=== PATIENT | male | born 1955 | race Caucasian/White ===

== ENCOUNTER 2019-07-11 16:51 | Inpatient (IN) | payer MEDICARE, MEDICAID ==
[~2019-07-11] VITALS: Ht 182.9 cm; Wt 86.6 kg
[~2019-07-11 16:51] MED LIST: IBUP-2071 PO; LISI-662 PO; LORA-1000 PO; PANT40TA25 PO; PARO20TA24 PO; TEMA15CA PO; TRAZ-257 PO
[2019-07-11] MEDS ORDERED: SERT100T12 PO (16:59)
[2019-07-11] MEDS ORDERED: HYDR25TA84 PO (16:59)
[2019-07-11] MEDS ORDERED: QUET300T2 PO (16:59)
[2019-07-11] MEDS ORDERED: HALOPERIDOL 5 MG TABLET PO PRN (17:15)
[2019-07-11] MEDS ORDERED: ZOLPIDEM TARTRATE 10 MG TABLET PO PRN (17:15)
[2019-07-11] MEDS ORDERED: INFLUENZA VIRUS VACCINE QVS 2019-20 (3YR+)/PF 60 MCG/0.5 ML SYRINGE IM ONE (18:15)
[2019-07-11 21:28] VITALS: BP 99/66
[2019-07-11] MEDS: TraZODone HCL 150 MG TABLET PO SCH (21:31)
[2019-07-12 05:01] VITALS: BP 137/74
[2019-07-12] MEDS ORDERED: OMEPRAZOLE 20 MG CAPSULE PO PRN (05:45)
[2019-07-12] MEDS ORDERED: ACETAMINOPHEN 325 MG TABLET PO PRN (05:45)
[2019-07-12] MEDS ORDERED: BENZOCAINE/MENTHOL LOZENGE MM PRN (05:45)
[2019-07-12] MEDS ORDERED: IBUPROFEN 600 MG TABLET PO PRN (05:45)
[2019-07-12] MEDS ORDERED: ALBUTEROL SULFATE HFA 90 MCG/PUFF 8 GM INHALER IH PRN (05:45)
[2019-07-12] MEDS ORDERED: ONDANSETRON HCL 4 MG TABLET PO PRN (05:45)
[2019-07-12] MEDS ORDERED: MAG HYDROX/AL HYDROX/SIMETH ES 30 ML SUSPENSION UDCUP PO PRN (05:45)
[2019-07-12] MEDS ORDERED: MAGNESIUM HYDROXIDE SUSPENSION 30 ML UDCUP PO PRN (05:45)
[2019-07-12] MEDS ORDERED: PETROLATUM,WHITE 28 GM JELLY TP PRN (05:45)
[2019-07-12] MEDS ORDERED: LOPERAMIDE HCL 2 MG CAPSULE PO PRN (05:45)
[2019-07-12] MEDS ORDERED: BACITRACIN 28.4 GM OINTMENT TP PRN (05:45)
[2019-07-12] MEDS ORDERED: CloNIDine HCL 0.1 MG TABLET PO PRN (05:45)
[2019-07-12] MEDS ORDERED: DOCUSATE SODIUM 100 MG CAPSULE PO PRN (05:45)
[2019-07-12 06:26] VITALS: BP 128/76
[2019-07-12] MEDS: LORazepam 2 MG TABLET PO PRN (06:28)
[2019-07-12 08:23] VITALS: BP 118/78
[2019-07-12] MEDS: QUEtiapine FUMARATE 200 MG TABLET PO SCH ×2 (08:40→16:56)
[2019-07-12] MEDS: SERTRALINE HCL 100 MG TABLET PO SCH (08:40)
[2019-07-12] MEDS: LISINOPRIL 20 MG TABLET PO SCH (08:41)
[2019-07-12] MEDS: DIAZEPAM 10 MG TABLET PO SCH (08:41)
[2019-07-12] MEDS: GABAPENTIN 300 MG CAPSULE PO SCH ×3 (08:41→16:56)
[2019-07-12] MEDS: NICOTINE 21 MG/24 HOUR PATCH TD SCH (08:42)
[2019-07-12] MEDS: HydrALAZINE HCL 25 MG TABLET PO SCH ×2 (08:48→16:56)
[2019-07-12 09:24] LABS: APPEARANCE,URINE CLEAR (CLEAR); BILIRUBIN,URINE NEGATIVE (NEGATIVE); GLUCOSE, URINE (UA) NEGATIVE (NEGATIVE); KETONES,URINE NEGATIVE (NEGATIVE); LEUKOCYTE ESTERASE ,URINE NEGATIVE (NEGATIVE); NITRATE,URINE NEGATIVE (NEGATIVE); OCCULT BLOOD,URINE NEGATIVE (NEGATIVE); PROTEIN,URINE NEGATIVE (NEGATIVE); UROBILINOGEN,URINE 0.2 mg/dL (<=1.0)
[2019-07-12 09:29] LABS: AMPHET/METH SCREEN,URINE NEGATIVE (NEGATIVE); BARBITURATE SCREEN, URINE NEGATIVE (NEGATIVE); BENZODIAZEPINES SCREEN,URINE POSITIVE (NEGATIVE); CANNABINOID SCREEN,URINE NEGATIVE (NEGATIVE); COCAINE SCREEN,URINE NEGATIVE (NEGATIVE); METHADONE SCREEN, URINE NEGATIVE (NEGATIVE); OPIATE SCREEN,URINE NEGATIVE (NEGATIVE); PHENCYCLIDINE SCREEN,URINE NEGATIVE (NEGATIVE)
[2019-07-12 16:11] VITALS: BP 109/67
[2019-07-12] MEDS: TraZODone HCL 150 MG TABLET PO SCH (20:45)
[2019-07-12] MEDS: DOCUSATE SODIUM 250 MG CAPSULE PO SCH (20:45)
[2019-07-13 00:14] VITALS: BP 100/60
[2019-07-13] MEDS: LORazepam 2 MG TABLET PO PRN ×2 (03:09→14:44)
[2019-07-13 03:10] VITALS: BP 107/69
[2019-07-13] MEDS: IBUPROFEN 800 MG TABLET PO PRN ×2 (03:15→14:44)
[2019-07-13 08:26] VITALS: BP 116/75
[2019-07-13] MEDS: SERTRALINE HCL 100 MG TABLET PO SCH (08:45)
[2019-07-13] MEDS: LISINOPRIL 20 MG TABLET PO SCH (08:45)
[2019-07-13] MEDS: NICOTINE 21 MG/24 HOUR PATCH TD SCH (08:45)
[2019-07-13] MEDS: GABAPENTIN 300 MG CAPSULE PO SCH ×3 (08:45→17:49)
[2019-07-13] MEDS: HydrALAZINE HCL 25 MG TABLET PO SCH ×2 (08:45→17:49)
[2019-07-13] MEDS: QUEtiapine FUMARATE 200 MG TABLET PO SCH ×2 (08:46→17:49)
[2019-07-13] MEDS: DIAZEPAM 10 MG TABLET PO SCH (08:46)
[2019-07-13 16:03] VITALS: BP 107/69
[2019-07-13 17:50] VITALS: BP 123/83
[2019-07-13] MEDS: DOCUSATE SODIUM 250 MG CAPSULE PO SCH (20:33)
[2019-07-13] MEDS: TraZODone HCL 150 MG TABLET PO SCH (20:33)
[2019-07-14] VITALS (8 sets, daily range): BP systolic 96–117; BP diastolic 64–81
[2019-07-14] MEDS: IBUPROFEN 800 MG TABLET PO PRN ×2 (01:18→14:10)
[2019-07-14] MEDS: LORazepam 2 MG TABLET PO PRN ×2 (06:09→14:10)
[2019-07-14] MEDS: NICOTINE 21 MG/24 HOUR PATCH TD SCH (08:28)
[2019-07-14] MEDS: QUEtiapine FUMARATE 200 MG TABLET PO SCH ×2 (08:29→16:17)
[2019-07-14] MEDS: DIAZEPAM 10 MG TABLET PO SCH (08:29)
[2019-07-14] MEDS: GABAPENTIN 300 MG CAPSULE PO SCH ×3 (08:29→16:18)
[2019-07-14] MEDS: HydrALAZINE HCL 25 MG TABLET PO SCH ×2 (08:29→17:00)
[2019-07-14] MEDS: LISINOPRIL 20 MG TABLET PO SCH (08:29)
[2019-07-14] MEDS: SERTRALINE HCL 100 MG TABLET PO SCH (08:29)
[2019-07-14 08:47] LABS: BASOPHILS % (AUTO) 1.1 % (0.0-2.0); EOSINOPHILS % (AUTO) 8.8 % (1.0-6.0); HEMATOCRIT 40.6 % (41-53); HEMOGLOBIN 13.7 g/dL (13.5-17.5); LYMPHOCYTES # (AUTO) 1.6 K/uL (1.0-4.8); LYMPHOCYTES % (AUTO) 31.7 % (22.0-44.0); MEAN CORPUSCULAR HEMOGLOBIN 32.1 pg (26.0-34.0); MEAN CORPUSCULAR HGB CONC 33.8 G/dL (31.0-37.0); MEAN CORPUSCULAR VOLUME 95 fL (80-100); MONOCYTES # (AUTO) 0.5 K/uL (0.1-1.0); MONOCYTES % (AUTO) 9.9 % (2.0-9.0); NEUTROPHILS # (AUTO) 2.4 K/uL (1.8-7.7); NEUTROPHILS % (AUTO) 48.5 % (40.0-70.0); PLATELET COUNT (AUTO) 202 K/uL (150-450); RED BLOOD CELL COUNT(AUTO) 4.28 MIL/uL (4.50-5.90)
[2019-07-14 09:11] LABS: HEMOGLOBIN A1C 5.2 % (4.5-6.2)
[2019-07-14 09:28] LABS: ALANINE AMINOTRANSFERASE 45 U/L (12-78); ALBUMIN 3.7 g/dL (3.4-5.0); ALKALINE PHOSPHATASE 68 U/L (46-116); ANION GAP 9 mmol/L (8-16); ASPARTATE AMINOTRANSFERASE 28 U/L (15-37); BILIRUBIN,TOTAL 0.3 mg/dL (0.1-1.0); CALCIUM, TOTAL 8.6 mg/dL (8.8-10.5); CARBON DIOXIDE 23 mmol/L (22-29); CHLORIDE 101 mmol/L (98-107); CREATININE 0.94 mg/dL (0.60-1.30); FREE T4 (FREE THYROXINE) 0.91 ng/dL (0.76-1.46); GLOMERULAR FILTR. RATE CALC > 60 mL/min (>60); GLUCOSE,RANDOM 67 mg/dL (70-110); POTASSIUM 4.3 mmol/L (3.5-5.1); SODIUM SERUM 133 mmol/L (136-145); THYROID STIMULATING HORMONE 1.71 uIU/mL (0.36-3.74); TOTAL PROTEIN, SERUM 7.1 g/dL (6.4-8.2); UREA NITROGEN, BLOOD 20 mg/dL (7-18)
[2019-07-14] MEDS: DOCUSATE SODIUM 250 MG CAPSULE PO SCH (20:28)
[2019-07-14] MEDS: TraZODone HCL 150 MG TABLET PO SCH (20:28)
[2019-07-15 01:22] VITALS: BP 100/47
[2019-07-15] MEDS: LORazepam 2 MG TABLET PO PRN ×2 (01:34→16:19)
[2019-07-15] MEDS: IBUPROFEN 800 MG TABLET PO PRN ×2 (01:34→16:19)
[2019-07-15 08:31] VITALS: BP 134/80
[2019-07-15] MEDS: LISINOPRIL 20 MG TABLET PO SCH (08:54)
[2019-07-15] MEDS: DIAZEPAM 10 MG TABLET PO SCH (08:54)
[2019-07-15] MEDS: HydrALAZINE HCL 25 MG TABLET PO SCH ×2 (08:54→16:19)
[2019-07-15] MEDS: SERTRALINE HCL 100 MG TABLET PO SCH (08:54)
[2019-07-15] MEDS: QUEtiapine FUMARATE 200 MG TABLET PO SCH ×2 (08:54→16:19)
[2019-07-15] MEDS: NICOTINE 21 MG/24 HOUR PATCH TD SCH (08:54)
[2019-07-15] MEDS: GABAPENTIN 300 MG CAPSULE PO SCH ×3 (08:54→16:19)
[2019-07-15 16:03] VITALS: BP 106/66
[2019-07-15] MEDS: TraZODone HCL 150 MG TABLET PO SCH (20:13)
[2019-07-15] MEDS: DOCUSATE SODIUM 250 MG CAPSULE PO SCH (20:13)
[2019-07-16 00:08] VITALS: BP 100/60
[2019-07-16 02:17] VITALS: BP 104/67
[2019-07-16] MEDS: LORazepam 2 MG TABLET PO PRN ×2 (02:21→14:48)
[2019-07-16] MEDS: IBUPROFEN 800 MG TABLET PO PRN ×2 (02:21→14:48)
[2019-07-16 08:07] VITALS: BP 125/81
[2019-07-16] MEDS: LISINOPRIL 20 MG TABLET PO SCH (09:01)
[2019-07-16] MEDS: GABAPENTIN 300 MG CAPSULE PO SCH ×3 (09:01→16:06)
[2019-07-16] MEDS: QUEtiapine FUMARATE 200 MG TABLET PO SCH ×2 (09:01→16:07)
[2019-07-16] MEDS: SERTRALINE HCL 100 MG TABLET PO SCH (09:01)
[2019-07-16] MEDS: HydrALAZINE HCL 25 MG TABLET PO SCH ×2 (09:01→16:06)
[2019-07-16] MEDS: DIAZEPAM 10 MG TABLET PO SCH (09:01)
[2019-07-16] MEDS: NICOTINE 21 MG/24 HOUR PATCH TD SCH (09:02)
[2019-07-16 16:07] VITALS: BP 111/72
[2019-07-16] MEDS: TraZODone HCL 150 MG TABLET PO SCH (20:34)
[2019-07-16] MEDS: DOCUSATE SODIUM 250 MG CAPSULE PO SCH (20:34)
[2019-07-17 00:05] VITALS: BP 108/75
[2019-07-17] MEDS: LORazepam 2 MG TABLET PO PRN ×2 (00:12→14:20)
[2019-07-17] MEDS: IBUPROFEN 800 MG TABLET PO PRN ×2 (00:13→14:21)
[2019-07-17 08:18] VITALS: BP 148/91
[2019-07-17] MEDS: HydrALAZINE HCL 25 MG TABLET PO SCH ×2 (08:24→16:30)
[2019-07-17] MEDS: GABAPENTIN 300 MG CAPSULE PO SCH ×3 (08:24→16:31)
[2019-07-17] MEDS: DIAZEPAM 10 MG TABLET PO SCH (08:24)
[2019-07-17] MEDS: QUEtiapine FUMARATE 200 MG TABLET PO SCH ×2 (08:24→16:31)
[2019-07-17] MEDS: SERTRALINE HCL 100 MG TABLET PO SCH (08:24)
[2019-07-17] MEDS: LISINOPRIL 20 MG TABLET PO SCH (08:25)
[2019-07-17] MEDS: NICOTINE 21 MG/24 HOUR PATCH TD SCH (08:25)
[2019-07-17 11:10] VITALS: BP 109/68
[2019-07-17 14:21] VITALS: BP 122/76
[2019-07-17 16:03] VITALS: BP 111/72
[2019-07-17] MEDS: TraZODone HCL 150 MG TABLET PO SCH (20:33)
[2019-07-17] MEDS: DOCUSATE SODIUM 250 MG CAPSULE PO SCH (20:33)
[2019-07-18 00:51] VITALS: BP 107/63
[2019-07-18 02:40] VITALS: BP 110/65
[2019-07-18] MEDS: LORazepam 2 MG TABLET PO PRN ×3 (02:45→21:22)
[2019-07-18] MEDS: IBUPROFEN 800 MG TABLET PO PRN ×2 (02:45→16:04)
[2019-07-18] MEDS: GABAPENTIN 300 MG CAPSULE PO SCH ×3 (08:06→16:31)
[2019-07-18] MEDS: LISINOPRIL 20 MG TABLET PO SCH (08:06)
[2019-07-18] MEDS: NICOTINE 21 MG/24 HOUR PATCH TD SCH (08:06)
[2019-07-18] MEDS: SERTRALINE HCL 100 MG TABLET PO SCH (08:06)
[2019-07-18] MEDS: QUEtiapine FUMARATE 200 MG TABLET PO SCH ×2 (08:06→16:31)
[2019-07-18] MEDS: DIAZEPAM 10 MG TABLET PO SCH (08:06)
[2019-07-18] MEDS: HydrALAZINE HCL 25 MG TABLET PO SCH ×2 (08:07→16:31)
[2019-07-18 08:13] VITALS: BP 116/74
[2019-07-18 16:02] VITALS: BP 113/75
[2019-07-18] MEDS: DOCUSATE SODIUM 250 MG CAPSULE PO SCH (20:32)
[2019-07-18] MEDS: TraZODone HCL 150 MG TABLET PO SCH (20:33)
[2019-07-19 01:10] VITALS: BP 111/72
[2019-07-19 04:29] VITALS: BP 130/85
[2019-07-19] MEDS: LORazepam 2 MG TABLET PO PRN ×2 (04:32→14:23)
[2019-07-19] MEDS: IBUPROFEN 800 MG TABLET PO PRN ×2 (04:32→16:05)
[2019-07-19] MEDS: GABAPENTIN 300 MG CAPSULE PO SCH ×3 (08:14→16:32)
[2019-07-19] MEDS: HydrALAZINE HCL 25 MG TABLET PO SCH ×2 (08:14→16:32)
[2019-07-19] MEDS: DIAZEPAM 10 MG TABLET PO SCH (08:14)
[2019-07-19] MEDS: QUEtiapine FUMARATE 200 MG TABLET PO SCH ×2 (08:18→16:32)
[2019-07-19] MEDS: LISINOPRIL 20 MG TABLET PO SCH (08:18)
[2019-07-19] MEDS: SERTRALINE HCL 100 MG TABLET PO SCH (08:18)
[2019-07-19] MEDS: NICOTINE 21 MG/24 HOUR PATCH TD SCH (08:22)
[2019-07-19 08:23] VITALS: BP 138/73
[2019-07-19 16:05] VITALS: BP 117/76
[2019-07-19] MEDS: DOCUSATE SODIUM 250 MG CAPSULE PO SCH (20:33)
[2019-07-19] MEDS: TraZODone HCL 150 MG TABLET PO SCH (20:33)
[2019-07-20 00:16] VITALS: BP 120/77
[2019-07-20 00:54] VITALS: BP 114/73
[2019-07-20] MEDS: LORazepam 2 MG TABLET PO PRN ×2 (00:54→12:14)
[2019-07-20] MEDS: IBUPROFEN 800 MG TABLET PO PRN ×2 (00:54→12:14)
[2019-07-20 08:11] VITALS: BP 120/86
[2019-07-20] MEDS: DIAZEPAM 10 MG TABLET PO SCH (08:11)
[2019-07-20] MEDS: HydrALAZINE HCL 25 MG TABLET PO SCH ×2 (08:12→16:35)
[2019-07-20] MEDS: GABAPENTIN 300 MG CAPSULE PO SCH ×3 (08:12→16:35)
[2019-07-20] MEDS: QUEtiapine FUMARATE 200 MG TABLET PO SCH ×2 (08:12→16:35)
[2019-07-20] MEDS: SERTRALINE HCL 100 MG TABLET PO SCH (08:12)
[2019-07-20] MEDS: LISINOPRIL 20 MG TABLET PO SCH (08:12)
[2019-07-20] MEDS: NICOTINE 21 MG/24 HOUR PATCH TD SCH (08:12)
[2019-07-20 13:14] VITALS: BP 117/82
[2019-07-20 16:09] VITALS: BP 129/83
[2019-07-20] MEDS: DOCUSATE SODIUM 250 MG CAPSULE PO SCH (20:35)
[2019-07-20] MEDS: TraZODone HCL 150 MG TABLET PO SCH (20:35)
[2019-07-21] MEDS: IBUPROFEN 800 MG TABLET PO PRN ×2 (01:11→13:46)
[2019-07-21] MEDS: LORazepam 2 MG TABLET PO PRN ×2 (01:12→13:46)
[2019-07-21 01:28] VITALS: BP 102/63
[2019-07-21 08:16] VITALS: BP 113/84
[2019-07-21] MEDS: SERTRALINE HCL 100 MG TABLET PO SCH (08:22)
[2019-07-21] MEDS: LISINOPRIL 20 MG TABLET PO SCH (08:22)
[2019-07-21] MEDS: DIAZEPAM 10 MG TABLET PO SCH (08:22)
[2019-07-21] MEDS: QUEtiapine FUMARATE 200 MG TABLET PO SCH ×2 (08:22→16:33)
[2019-07-21] MEDS: GABAPENTIN 300 MG CAPSULE PO SCH ×3 (08:22→16:33)
[2019-07-21] MEDS: HydrALAZINE HCL 25 MG TABLET PO SCH ×2 (08:22→16:33)
[2019-07-21] MEDS: NICOTINE 21 MG/24 HOUR PATCH TD SCH (08:23)
[2019-07-21 13:46] VITALS: BP 121/75
[2019-07-21 16:05] VITALS: BP 117/66
[2019-07-21] MEDS: TraZODone HCL 150 MG TABLET PO SCH (20:43)
[2019-07-21] MEDS: DOCUSATE SODIUM 250 MG CAPSULE PO SCH (20:43)
[2019-07-22 00:09] VITALS: BP 100/60
[2019-07-22 01:40] VITALS: BP 113/68
[2019-07-22] MEDS: IBUPROFEN 800 MG TABLET PO PRN ×2 (01:43→13:47)
[2019-07-22] MEDS: LORazepam 2 MG TABLET PO PRN (01:43)
[2019-07-22 08:07] VITALS: BP 119/71
[2019-07-22] MEDS: SERTRALINE HCL 100 MG TABLET PO SCH (08:37)
[2019-07-22] MEDS: HydrALAZINE HCL 25 MG TABLET PO SCH ×2 (08:37→16:27)
[2019-07-22] MEDS: LISINOPRIL 20 MG TABLET PO SCH (08:38)
[2019-07-22] MEDS: GABAPENTIN 300 MG CAPSULE PO SCH ×3 (08:38→16:27)
[2019-07-22] MEDS: NICOTINE 21 MG/24 HOUR PATCH TD SCH (08:38)
[2019-07-22] MEDS: QUEtiapine FUMARATE 200 MG TABLET PO SCH ×2 (08:38→16:27)
[2019-07-22] MEDS ORDERED: DIAZEPAM 10 MG TABLET PO PRN (13:15)
[2019-07-22] MEDS: DIAZEPAM 10 MG TABLET PO SCH (13:37)
[2019-07-22 13:43] VITALS: BP 105/78
[2019-07-22 16:08] VITALS: BP 111/66
[2019-07-22] MEDS: TraZODone HCL 150 MG TABLET PO SCH (20:14)
[2019-07-22] MEDS: DOCUSATE SODIUM 250 MG CAPSULE PO SCH (20:14)
[2019-07-23 05:00] VITALS: BP 115/85
[2019-07-23] MEDS: LORazepam 2 MG TABLET PO PRN ×2 (05:10→14:51)
[2019-07-23] MEDS: IBUPROFEN 800 MG TABLET PO PRN ×2 (05:11→14:50)
[2019-07-23 08:13] VITALS: BP 111/79
[2019-07-23] MEDS: DIAZEPAM 10 MG TABLET PO SCH (08:22)
[2019-07-23] MEDS: QUEtiapine FUMARATE 200 MG TABLET PO SCH ×2 (08:23→16:32)
[2019-07-23] MEDS: HydrALAZINE HCL 25 MG TABLET PO SCH ×2 (08:23→16:32)
[2019-07-23] MEDS: NICOTINE 21 MG/24 HOUR PATCH TD SCH (08:23)
[2019-07-23] MEDS: GABAPENTIN 300 MG CAPSULE PO SCH ×3 (08:23→16:32)
[2019-07-23] MEDS: SERTRALINE HCL 100 MG TABLET PO SCH (08:23)
[2019-07-23] MEDS: LISINOPRIL 20 MG TABLET PO SCH (08:23)
[2019-07-23] MEDS ORDERED: DIAZEPAM 10 MG TABLET PO SCH (09:00)
[2019-07-23 14:50] VITALS: BP 118/75
[2019-07-23 16:40] VITALS: BP 117/78
[2019-07-23] MEDS: DOCUSATE SODIUM 250 MG CAPSULE PO SCH (20:28)
[2019-07-23] MEDS: TraZODone HCL 150 MG TABLET PO SCH (20:28)
[2019-07-24 00:25] VITALS: BP 92/55
[2019-07-24 01:21] VITALS: BP 94/60
[2019-07-24 03:20] VITALS: BP 120/96
[2019-07-24] MEDS: IBUPROFEN 800 MG TABLET PO PRN ×2 (03:24→16:25)
[2019-07-24] MEDS: LORazepam 2 MG TABLET PO PRN ×2 (03:24→22:06)
[2019-07-24 08:13] VITALS: BP 118/81
[2019-07-24] MEDS: DIAZEPAM 10 MG TABLET PO SCH (08:36)
[2019-07-24] MEDS: SERTRALINE HCL 100 MG TABLET PO SCH (08:36)
[2019-07-24] MEDS: QUEtiapine FUMARATE 200 MG TABLET PO SCH ×2 (08:36→16:39)
[2019-07-24] MEDS: LISINOPRIL 20 MG TABLET PO SCH (08:36)
[2019-07-24] MEDS: GABAPENTIN 300 MG CAPSULE PO SCH ×3 (08:36→16:39)
[2019-07-24] MEDS: HydrALAZINE HCL 25 MG TABLET PO SCH ×2 (08:37→16:39)
[2019-07-24] MEDS: NICOTINE 21 MG/24 HOUR PATCH TD SCH (08:37)
[2019-07-24 16:26] VITALS: BP 116/77
[2019-07-24] MEDS: LIDOCAINE 2% 30 ML JELLY TP SCH ×2 (16:39→20:33)
[2019-07-24] MEDS: DOCUSATE SODIUM 250 MG CAPSULE PO SCH (20:32)
[2019-07-24] MEDS: TraZODone HCL 150 MG TABLET PO SCH (20:32)
[2019-07-25 05:14] VITALS: BP 115/77
[2019-07-25] MEDS: LORazepam 2 MG TABLET PO PRN (05:14)
[2019-07-25] MEDS: IBUPROFEN 800 MG TABLET PO PRN (05:14)
[2019-07-25 06:36] VITALS: BP 117/83
[2019-07-25 08:28] VITALS: BP 126/79
[2019-07-25] MEDS: LISINOPRIL 20 MG TABLET PO SCH (08:43)
[2019-07-25] MEDS: QUEtiapine FUMARATE 200 MG TABLET PO SCH ×2 (08:43→16:30)
[2019-07-25] MEDS: SERTRALINE HCL 100 MG TABLET PO SCH (08:43)
[2019-07-25] MEDS: GABAPENTIN 300 MG CAPSULE PO SCH ×3 (08:43→16:30)
[2019-07-25] MEDS: DIAZEPAM 10 MG TABLET PO SCH (08:43)
[2019-07-25] MEDS: NICOTINE 21 MG/24 HOUR PATCH TD SCH (08:43)
[2019-07-25] MEDS: HydrALAZINE HCL 25 MG TABLET PO SCH ×2 (08:45→16:30)
[2019-07-25] MEDS: LIDOCAINE 2% 30 ML JELLY TP SCH ×4 (08:45→20:34)
[2019-07-25 16:14] VITALS: BP 122/75
[2019-07-25] MEDS: DOCUSATE SODIUM 250 MG CAPSULE PO SCH (20:33)
[2019-07-25] MEDS: TraZODone HCL 150 MG TABLET PO SCH (20:33)
[2019-07-26 00:14] VITALS: BP 126/78
[2019-07-26] MEDS: LORazepam 2 MG TABLET PO PRN ×3 (00:16→22:49)
[2019-07-26] MEDS: IBUPROFEN 800 MG TABLET PO PRN ×3 (00:16→22:49)
[2019-07-26 08:09] VITALS: BP 124/80
[2019-07-26] MEDS: LISINOPRIL 20 MG TABLET PO SCH (08:32)
[2019-07-26] MEDS: QUEtiapine FUMARATE 200 MG TABLET PO SCH ×2 (08:32→16:38)
[2019-07-26] MEDS: NICOTINE 21 MG/24 HOUR PATCH TD SCH (08:33)
[2019-07-26] MEDS: SERTRALINE HCL 100 MG TABLET PO SCH (08:33)
[2019-07-26] MEDS: DIAZEPAM 10 MG TABLET PO SCH (08:33)
[2019-07-26] MEDS: GABAPENTIN 300 MG CAPSULE PO SCH ×3 (08:33→16:38)
[2019-07-26] MEDS: HydrALAZINE HCL 25 MG TABLET PO SCH ×2 (09:07→16:38)
[2019-07-26] MEDS: LIDOCAINE 2% 30 ML JELLY TP SCH ×4 (09:12→20:31)
[2019-07-26 16:10] VITALS: BP 130/71
[2019-07-26] MEDS: TraZODone HCL 150 MG TABLET PO SCH (20:31)
[2019-07-26] MEDS: DOCUSATE SODIUM 250 MG CAPSULE PO SCH (20:31)
[2019-07-26 22:46] VITALS: BP 112/70
[2019-07-27 01:00] VITALS: BP 100/55
[2019-07-27] MEDS: LORazepam 2 MG TABLET PO PRN (05:33)
[2019-07-27] MEDS: IBUPROFEN 800 MG TABLET PO PRN (05:33)
[2019-07-27 08:35] VITALS: BP 149/89
[2019-07-27] MEDS ORDERED: QUET200T PO (08:38)
[2019-07-27] MEDS ORDERED: GABA-531 PO (08:38)
[2019-07-27] MEDS ORDERED: LISI-662 PO (08:38)
[2019-07-27] MEDS ORDERED: DIAZ10 PO (08:38)
[2019-07-27] MEDS: SERTRALINE HCL 100 MG TABLET PO SCH (08:39)
[2019-07-27] MEDS: QUEtiapine FUMARATE 200 MG TABLET PO SCH (08:39)
[2019-07-27] MEDS: DIAZEPAM 10 MG TABLET PO SCH (08:39)
[2019-07-27] MEDS: GABAPENTIN 300 MG CAPSULE PO SCH ×2 (08:39→13:16)
[2019-07-27] MEDS: LISINOPRIL 20 MG TABLET PO SCH (08:39)
[2019-07-27] MEDS: NICOTINE 21 MG/24 HOUR PATCH TD SCH (08:41)
[2019-07-27] MEDS: LIDOCAINE 2% 30 ML JELLY TP SCH ×2 (08:42→13:16)
[2019-07-27] MEDS: HydrALAZINE HCL 25 MG TABLET PO SCH (09:14)
== END 2019-07-27 13:25 | disposition home or self-care (01) | DRG 885 ==
LOC: B2X 17:58
PROVIDERS: ADMIT Psychiatry & Neurology Psychiatry; ATTEND Psychiatry & Neurology Psychiatry
DX: F25.9 Schizoaffective disorder, unspecified (principal); R45.851 Suicidal ideations; I10 Essential (primary) hypertension; F41.9 Anxiety disorder, unspecified; K21.9 Gastro-esophageal reflux disease without esophagitis; K59.00 Constipation, unspecified; G47.00 Insomnia, unspecified; F19.10 Other psychoactive substance abuse, uncomplicated; Z72.0 Tobacco use; Z85.47 Personal history of malignant neoplasm of testis; Z23 Encounter for immunization
CPT/HCPCS: 80307; 83036; 84439; 84443; 86592; 90686